=== PATIENT | female | born 1990 | race Hispanic/Latino ===

== ENCOUNTER 2019-03-04 12:46 | Inpatient (IN) | payer OTHER ==
[2019-03-04] MEDS ORDERED: hydrALAZINE 20 MG/ML VIAL SLOW IVP PRN ×2 (13:00→13:17)
--- NOTE | 2019-03-04 13:04 | PDOC.LDHP ---
Labor and Delivery H&P Chief complaint: contractions, loss of fluid HPI: Patient's water broke at 0300. she has been laboring at home with contractions every 3 mins. The baby is moving, not as much as usual, but is moving. 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 Current gestational age (weeks): 40 (and 5 days) Due date: 02/27/19 Dating criteria: last menstrual period Grav: 1 Para: 0 Past Medical History: Heterozygous MTHRF Protein S deficiency Herpes labials. Current medications: pre- vitamins, other (81 mg Aspirin) Previous surgical history: other (tonsillectomy) Social history: none - Physical Exam Vital signs reviewed and normal: yes General: breathing through contractions Abdomen: gravid FHT: category 1 - Vaginal Exam cm dilated: 5 Effacement: 100% Station: 0 - OB Labs Blood type: A RH: positive Antibody Screen: negative HIV: negative RPR: negative HEPSAg: negative 1 hour GCT: negative GBS: negative Urine drug screen: negative Rubella: immune - Assessment L&D Assessment: term rupture in membranes - Plan Plan: admit to L&D
[2019-03-04] MEDS ORDERED: NS / Oxytocin 40 units/1000ml 1,000 ML IV PRN (13:17)
[2019-03-04] MEDS ORDERED: Lactated Ringer's 1,000 ML IV PRN (13:17)
[2019-03-04] MEDS ORDERED: HYDROcodone/Acetaminophen 5/325 mg Tablet PO PRN ×2 (13:17)
[2019-03-04] MEDS ORDERED: Lidocaine 1% (PF) 30 ML VIAL SC PRN (13:17)
[2019-03-04] MEDS ORDERED: Ondansetron PF 4 MG/2 ML Vial IVP PRN (13:17)
[2019-03-04] MEDS ORDERED: Misoprostol 200 MCG TAB PR PRN (13:17)
[2019-03-04] MEDS ORDERED: Butorphanol Tartrate 1 MG/ML VIAL SLOW IVP PRN (13:17)
[2019-03-04] MEDS ORDERED: Ibuprofen 800 MG TAB PO PRN (13:17)
[2019-03-04] MEDS ORDERED: Methylergonovine 0.2 MG/ML VIAL IM PRN (13:17)
[2019-03-04] MEDS ORDERED: Promethazine HCl 25 MG/ML VIAL IM PRN (13:17)
[2019-03-04 14:01] LABS: Hemoglobin 14.6 g/dL (12.0-16.0); Mean Corpuscular HGB CONC 35.2 g/dL (32.0-36.0); Mean Corpuscular Hemoglobin 34.9 pg (27.0-31.0); Mean Corpuscular Volume 99.2 fL (78.0-98.0); Mean Platelet Volume 8.4 fL (7.4-10.4); Platelet Count 193 thou/uL (130-400); RBC Distribution Width 11.6 % (11.5-14.5); Red Blood Cell (RBC) Count 4.18 mill/uL (4.20-5.40)
[2019-03-04 14:41] LABS: Hep B Surf Ag Non-Reactive S/CO (NonReactive); Syphilis Antibody Nonreactive (Nonreactive); Syphilis Antibody Index 0.04 S/CO (<1.00 Non-Reactive)
[2019-03-04 15:18] VITALS: BMI 26.6
[2019-03-05] MEDS ORDERED: Benzocaine-Menthol 82.5 ML CAN TOP PRN (01:52)
[2019-03-05] MEDS ORDERED: Bisacodyl 10 MG SUPP PR PRN (01:52)
[2019-03-05] MEDS ORDERED: HYDROcodone/Acetaminophen 5/325 mg Tablet PO PRN ×2 (01:52)
[2019-03-05] MEDS ORDERED: hydrALAZINE 20 MG/ML VIAL SLOW IVP PRN (01:52)
[2019-03-05] MEDS ORDERED: Misoprostol 200 MCG TAB VAG PRN (01:52)
[2019-03-05] MEDS ORDERED: Lanolin Ointment 7 GM TUBE TOP PRN (01:52)
[2019-03-05] MEDS ORDERED: Milk Of Magnesia 30 ML UDCUP PO PRN (01:52)
[2019-03-05] MEDS ORDERED: Ondansetron PF 4 MG/2 ML Vial IVP PRN (01:52)
[2019-03-05] MEDS ORDERED: Methylergonovine 0.2 MG/ML VIAL IM PRN (01:52)
[2019-03-05] MEDS: NS / Oxytocin 40 units/1000ml 1,000 ML IV SCH ×2 (02:20)
[2019-03-05] MEDS: Ibuprofen 800 MG TAB PO SCH ×3 (06:26→22:52)
[2019-03-05] MEDS ORDERED: Adacel (T-DAP) 0.5 ML SYRINGE IM ONE (09:00)
[2019-03-05] MEDS: Prenatal Vitamin 1 TAB PO SCH (09:39)
[2019-03-05] MEDS: Docusate Calcium (SURFAK) 240 MG CAP PO SCH ×2 (09:39→22:52)
[2019-03-05] MEDS: Ferrous Sulfate 325 MG TAB PO SCH ×2 (09:40→17:48)
--- NOTE | 2019-03-05 16:33 | PDOC.OPDEL ---
OB Operative/Delivery Note Delivery Dr/Surgeon: Justus mancilla Pre-Delivery Diagnosis: active labor Procedure/Post Delivery Dx: spontaneous vaginal delivery Weeks gestation: 40 Anesthesia: none - Findings A Sex: female Weight: 8 lb 1 oz - 1 min: 8 - 5 min: 9 - Additional Findings/Plan Placenta delivered: spontaneous Repaired Obstetrical Laceration: none Estimated blood loss: 250mL Post delivery plan: routine recovery
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
[2019-03-06] MEDS: Ibuprofen 800 MG TAB PO SCH ×2 (06:02→15:03)
[2019-03-06] MEDS: Prenatal Vitamin 1 TAB PO SCH (07:59)
[2019-03-06] MEDS: Docusate Calcium (SURFAK) 240 MG CAP PO SCH (07:59)
[2019-03-06] MEDS: Ferrous Sulfate 325 MG TAB PO SCH (08:00)
[2019-03-06 08:26] VITALS: BP 116/60; TEMP 97.8
== END 2019-03-06 16:35 | disposition home or self-care (01) | DRG 806 ==
LOC: L&D/OP 12:46 → L&D-LIB 14:10 → L&D/OP 03-05 01:01 → L&D-LIB 03-05 03:24 → 3SW 03-05 03:24
PROVIDERS: ADMIT Obstetrics & Gynecology; ATTEND Obstetrics & Gynecology
PROC: 10E0XZZ Delivery of Products of Conception, External Approach (ICD-10-PCS; principal; 2019-03-05)
DX: O99.12 Other diseases of the blood and blood-forming organs and certain disorders involving the immune mechanism complicating childbirth (principal); D68.59 Other primary thrombophilia; Z37.0 Single live birth; Z3A.40 40 weeks gestation of pregnancy; Z79.82 Long term (current) use of aspirin
CPT/HCPCS: 36415; 85027; 86780; 86850; 86900; 86901; 87340

== ENCOUNTER 2022-09-20 11:06 | Outpatient (CLI) | payer OTHER | END 2022-09-20 11:07 | disposition home or self-care (01) | LOC: MRI 11:06 | PROVIDERS: ATTEND Nurse Practitioner Family | DX: S83.8X1D Sprain of other specified parts of right knee, subsequent encounter (principal); S83.281A Other tear of lateral meniscus, current injury, right knee, initial encounter; M25.561 Pain in right knee; R60.0 Localized edema ==